=== PATIENT | female | born 1970 | race Caucasian/White ===

== ENCOUNTER → 2019-03-26 12:21 | Outpatient (CLI) | payer BC, SELFPAY ==
--- NOTE | ~2019-03-26 | MM_ITS ---
EXAMINATION: MM screening [facility] BI w saul HISTORY: Screening mammogram TECHNIQUE: Craniocaudal and mediolateral oblique 3-D tomosynthesis images were obtained and synthetic 2-D images were generated. CAD analysis was submitted and interpreted. COMPARISON: 03/12/2018, 02/27/2018, 07/27/2016 BREAST PARENCHYMAL COMPOSITION: There are scattered areas of fibroglandular density. FINDINGS: There is no evidence of suspicious mass, calcification, or architectural distortion to sugg est malignancy in either breast. There has been no suspicious interval change. IMPRESSION: 1. No mammographic evidence of malignancy. 2. Recommend routine screening mammography in one year. BI-RADS Category 1: Negative Reviewed, dictated and finalized at location A. 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
== END ==
PROVIDERS: PCP Family Medicine; Visit Provider Obstetrics & Gynecology
DX: Z12.31 Encounter for screening mammogram for malignant neoplasm of breast (principal)
CPT/HCPCS: 77063; 77067

== ENCOUNTER 2020-03-14 13:59 | Emergency (ER) | payer BC, SELFPAY ==
[2020-03-14] VITALS (9 sets, daily range): BP systolic 124–173; BP diastolic 84–98; PULSE 74–84; RESP 12–17; TEMP 36.7; O2SAT 98–100
--- NOTE | ~2020-03-14 | XR_ITS ---
EXAMINATION: XR chest 2V 03/14/2020 14:31 INDICATION: Chest pain PROCEDURE: 2 view chest COMPARISON: 02/07/2012 FINDINGS: The lungs are clear. The cardiomediastinal silhouette is within normal limits. There are no pleural effusions. There is no pneumothorax suspected. IMPRESSION: 1: NO ACUTE CARDIOPULMONARY DISEASE. Reviewed, dictated and finalized at location A. CH ARTIST
--- NOTE | 2020-03-14 14:05 | ECG_ITS ---
Measurements Intervals [place] Rate: 81 P: 46 ID: [id number] QRS: 9 QRSD: 92 T: 78 QT: 394 QTc: 460 Interpretive Statements SINUS RHYTHM POSSIBLE LEFT ATRIAL ENLARGEMENT LEFT VENTRICULAR HYPERTROPHY WITH ST-T CHANAGE BORDERLINE ECG Electronically Signed On 03-14-2020 14:19:27 [facility] by Reid Coreas D.O.
[2020-03-14 14:18] LABS: Basophils Absolute Auto 0.1 K/mm3 (0.0-0.1); Basophils Percent Auto 0.7 % (0.2-1.2); Eosinophils Absolute Auto 0.1 K/mm3 (0-0.3); Hematocrit 41.4 % (37.0-47.0); Immature Granulocyte Absolute 0.02 K/mm3 (0.00-0.031); Immature Granulocyte Percent A 0.2 % (0-0.5); Lymphocytes Absolute Auto 3.26 K/mm3 (0.9-3.2); Lymphocytes Percent Auto 36.6 % (18.3-44.2); Mean Corpuscular HGB Conc 33.8 g/dl (32-36); Mean Corpuscular Hemoglobin 29.9 pg (26-34); Mean Corpuscular Volume 88.5 fl (80-100); Mean Platelet Volume 8.9 fl (7.4-10.4); Monocytes Absolute Auto 0.6 K/mm3 (0.1-0.6); Monocytes Percent Auto 6.3 % (2.6-8.5); Neutrophils Absolute Auto 4.9 K/mm3 (1.3-6.7); Neutrophils Percent Auto 55.2 % (45.5-73.1); Platelet Count Result 369 k/mm3 (150-375); Red Blood Count 4.68 M/mm3 (4.2-5.4); Red Cell Distribution Width 12.5 % (11.5-14.5); White Blood Count 8.9 K/mm3 (4.5-10.0)
--- NOTE | 2020-03-14 14:18 | ED.GENADULT ---
HPI - General Adult General Chief complaint: Chest Pain Stated complaint: chest pain Time Seen by Provider: 03/14/20 14:14 Related Data Home Medications Medication Instructions Recorded Confirmed atorvastatin 20 mg tablet 20 mg PO DAILY 11/13/19 11/28/19 citalopram 10 mg tablet 5 mg PO DAILY 11/13/19 11/28/19 glipizide 5 mg tablet 5 mg PO DAILY 11/13/19 11/28/19 insulin glargine 100 unit/mL (3 36 unit SUBCUT QPM 11/13/19 11/28/19 mL) subcutaneous pen metformin 500 mg tablet 500 mg PO DAILY 11/13/19 11/28/19 omeprazole 40 mg capsule,delayed 40 mg PO DAILY 11/13/19 11/28/19 release gabapentin 03/14/20 Allergies Allergy/AdvReac Type Severity Reaction Status Date / Time No Known Allergies Allergy Verified 03/14/20 14:10 [facility] Past Medical History Medical History Anxiety Diabetes High blood cholesterol Surgical History Surgical History H/O: hysterectomy Hx of cholecystectomy Hx of tonsillectomy Family History Family History Grandparent Diabetes mellitus, Onset Age: 60 Family history of malignant neoplasm of breast in first degree relative, Onset Age: 89 Mother Patient's mother is in good health Social History Social History Smoking status: Former smoker Alcohol intake: unknown Substance use: never Gender identity (if verbalized by the patient): Female Course Vital Signs Vital signs: Vital Signs Temperature 36.7 C 03/14/20 14:05 Pulse Rate 84 03/14/20 14:05 Respiratory Rate 17 03/14/20 14:05 Blood Pressure 173/92 H 03/14/20 14:05 Pulse Oximetry 100 03/14/20 14:05 Temperature 36.7 C 03/14/20 14:05 Pulse Rate 82 03/14/20 14:17 Respiratory Rate 14 03/14/20 14:17 Blood Pressure 170/84 H 03/14/20 14:17 Pulse Oximetry 100 03/14/20 14:17 Medical Decision Making Vital Signs Vital Signs: Vital Signs Temperature 36.7 C 03/14/20 14:05 Pulse Rate 84 03/14/20 14:05 Respiratory Rate 17 03/14/20 14:05 Blood Pressure 173/92 H 03/14/20 14:05 Pulse Oximetry 100 03/14/20 14:05 Temperature 36.7 C 03/14/20 14:05 Pulse Rate 82 03/14/20 14:17 Respiratory Rate 14 03/14/20 14:17 Blood Pressure 170/84 H 03/14/20 14:17 Pulse Oximetry 100 03/14/20 14:17 Lab Data Result diagrams: 03/14/20 14:12 03/14/20 14:12 Labs: Lab Results 03/14/20 03/14/20 03/14/20 Range/Units 14:12 14:12 14:12 WBC Pending RBC Pending Hgb Pending Hct Pending MCV Pending MCH Pending MCHC Pending RDW Pending Plt Count Pending MPV Pending Immature Gran % (Auto) Pending Neut % (Auto) Pending Lymph % (Auto) Pending [place] % (Auto) Pending Eos % (Auto) Pending Baso % (Auto) Pending Lymph # (Auto) Pending [place] # (Auto) Pending Eos # (Auto) Pending Baso # (Auto) Pending Abs Immat Gran (auto) Pending Absolute Neuts (auto) Pending Absolute Nucleated RBC Pending Nucleated RBC % Pending PT Pending INR Pending APTT Pending Sodium Pending Potassium Pending Chloride Pending Carbon Dioxide Pending Anion Gap Pending BUN Pending Creatinine Pending Estim Creat Clear Calc Pending Estimated GFR Pending Glucose Pending Calcium Pending Troponin I Pending ECG Data EKG #1: Attestation: I personally reviewed and interpreted this ECG as follows: ECG completion date: 03/14/20 ECG completion time: 14:07 EKG Interpretation: normal rate, sinus rhythm, no ectopy and NL axis Discharge Plan Discharge Prescriptions: No Action estradiol 0.5 mg tablet 0.5 mg PO DAILY Qty: 90 RF
--- NOTE | 2020-03-14 14:23 | ED.GENADULT ---
HPI - General Adult General Chief complaint: Chest Pain Stated complaint: chest pain Time Seen by Provider: 03/14/20 14:14 Source: patient History of Present Illness HPI narrative: Patient is a 50 y/o female complaining of left side chest pain starting 7:00 AM this morning. She describes her pain as a pressure and pulled muscle. She states that her pain radiates to her pain and she rates it as 7/10. She states that taking a deep breath aggravates her pain. She has no SOB, cough or fever. Related Data Home Medications Medication Instructions Recorded Confirmed atorvastatin 20 mg tablet 20 mg PO DAILY 11/13/19 11/28/19 citalopram 10 mg tablet 5 mg PO DAILY 11/13/19 11/28/19 glipizide 5 mg tablet 5 mg PO DAILY 11/13/19 11/28/19 insulin glargine 100 unit/mL (3 36 unit SUBCUT QPM 11/13/19 11/28/19 mL) subcutaneous pen metformin 500 mg tablet 500 mg PO DAILY 11/13/19 11/28/19 omeprazole 40 mg capsule,delayed 40 mg PO DAILY 11/13/19 11/28/19 release gabapentin 03/14/20 Allergies Allergy/AdvReac Type Severity Reaction Status Date / Time No Known Allergies Allergy Verified 03/14/20 14:10 Review of Systems Constitutional: Constitutional: Denies chills, Denies fever(s), Denies headache(s) and Denies weakness Eyes: Eyes: Denies blurry vision ENT: Denies headache(s) and Denies neck pain Cardiovascular: Cardiovascular: Reports chest pain and Denies dyspnea Respiratory: Respiratory: Denies cough and Denies dyspnea Gastrointestinal: Gastrointestinal: Denies abdominal pain, Denies diarrhea, Denies nausea and Denies vomiting Genitourinary: Genitourinary: Denies hematuria and Denies dysuria Musculoskeletal: Musculoskeletal: Denies back pain and Denies neck pain Neurologic: Denies headache(s) and Denies weakness PMFSH Past Medical History Medical History Anxiety Diabetes High blood cholesterol Surgical History Surgical History H/O: hysterectomy Hx of cholecystectomy Hx of tonsillectomy Family History Family History Grandparent Diabetes mellitus, Onset Age: 60 Family history of malignant neoplasm of breast in first degree relative, Onset Age: 89 Mother Patient's mother is in good health Social History Social History Smoking status: Former smoker Alcohol intake: unknown Substance use: never Gender identity (if verbalized by the patient): Female Exam Const: General: no acute distress and well developed Orientation/consciousness: oriented to person, oriented to place, oriented to time and patient oriented x3 HENMT: Head: normocephalic Ears: external ears normal General nose exam: Normal external nose present Eyes: General: appearance normal, both eyes and all related structures Conjunctivae: conjunctivae normal Neck: Neck: normal visual inspection and full ROM Chest: Chest palpation & inspection: normal inspection of the chest and no tenderness Resp: Effort & Inspection: normal respiratory effort Auscultation: clear to auscultation bilaterally Cardio: Rate: regular rate Rhythm: regular rhythm GI: GI Palp: No abdominal tenderness and Yes Soft to palpation Skin: General skin exam: normal color and turgor normal Neuro: General: oriented to person, oriented to place, oriented to time and patient oriented x3 Cognition (Neuro): normal cognition Extrem: General: normal to inspection, full ROM and no pedal edema Psych: Appearance: grossly normal Mental Status: mental status grossly normal Affect: normal affect Course Reevaluation(s) Reevaluation #1: Rechecked patient. She states that she feels better with no significant chest pain at this time. Date: 03/14/20 Time: 18:10 Vital Signs Vital signs: Vital Signs Temperature 36.7 C 03/14/20 14:05 Pulse Rate
[2020-03-14 14:27] LABS: INR 0.9
[2020-03-14 14:28] LABS: Partial Thromboplastin Time 28.8 SECONDS (22.3-36.8)
[2020-03-14 14:29] LABS: Anion Gap 4 mmol/L (8-16); Blood Urea Nitrogen 16 mg/dL (7-17); Calcium 8.8 mg/dL (8.4-10.2); Carbon Dioxide 30 mmol/L (22-30); Chloride 102 mmol/L (98-107); Estimated CRCL calculation 125 ml/min; Estimated Glomerular Filt Rate > 60; Glucose 269 mg/dL (65-105); Potassium 4.1 mmol/L (3.4-5.0); Sodium 136 mmol/L (137-145)
[2020-03-14] MEDS: ASPIRIN 81 MG CHEWABLE TABLET 324 MG PO (14:40)
[2020-03-14 14:41] LABS: Troponin I < 0.012 ng/mL (0.000-0.034)
[2020-03-14] MEDS: KETOROLAC 30 MG/ML VIAL (*BKC) IV PUSH (14:44)
[2020-03-14 15:11] LABS: D Dimer 0.35 ug/mL (<0.48)
[2020-03-14 17:34] LABS: Troponin I < 0.012 ng/mL (0.000-0.034)
== END 2020-03-14 18:21 | disposition home or self-care (01) ==
PROVIDERS: Emergency Provider Emergency Medicine; PCP Family Medicine
DX: R07.89 Other chest pain (principal); I51.7 Cardiomegaly; R94.31 Abnormal electrocardiogram [ECG] [EKG]
CPT/HCPCS: 36415; 71046; 80048; 84484; 85025; 85380; 85610; 85730; 93005; 96374; 99284; A9270; J1885

== ENCOUNTER → 2020-04-30 17:13 | Outpatient (CLI) | payer BC, SELFPAY ==
--- NOTE | ~2020-04-30 | MM_ITS ---
EXAMINATION: MM screening [facility] BI w saul HISTORY: Screening mammogram TECHNIQUE: Craniocaudal and mediolateral oblique 3-D tomosynthesis images were obtained and synthetic 2-D images were generated. CAD analysis was submitted and interpreted. COMPARISON: 03/26/2019, 03/12/2018, 02/27/2018, 07/28/2016 BREAST PARENCHYMAL COMPOSITION: There are scattered areas of fibroglandular density. FINDINGS: There is no evidence of suspicious mass, calcification, or architectural distortion to sugg est malignancy in either breast. There has been no suspicious interval change. IMPRESSION: 1. No mammographic evidence of malignancy. 2. Recommend routine screening mammography in one year. BI-RADS Category 1: Negative Reviewed, dictated and finalized at location A.
== END ==
PROVIDERS: PCP Family Medicine; Visit Provider Obstetrics & Gynecology
DX: Z12.31 Encounter for screening mammogram for malignant neoplasm of breast (principal)
CPT/HCPCS: 77063; 77067

== ENCOUNTER → 2021-08-23 14:00 | Outpatient (CLI) | payer BC, SELFPAY ==
--- NOTE | ~2021-08-23 | MM_ITS ---
EXAMINATION: MM screening [facility] w saul HISTORY: Screening TECHNIQUE: Craniocaudal and mediolateral oblique 3-D tomosynthesis images were obtained and synthetic 2-D images were generated. CAD analysis was submitted and interpreted. COMPARISON: Comparison to multiple prior studies sequentially, with oldest reviewed study dated 07/27. BREAST PARENCHYMAL COMPOSITION: There are scattered areas of fibroglandular density. FINDINGS: There is no evidence of suspicious mass, calcification, or architectural distortion to sugg est malignancy in either breast. There has been no suspicious interval change. IMPRESSION: 1. No mammographic evidence of malignancy. 2. Recommend routine screening mammography in one year. BI-RADS Category 1: Negative Reviewed, dictated and finalized at location A.
== END ==
PROVIDERS: PCP Family Medicine; Visit Provider Obstetrics & Gynecology
DX: Z12.31 Encounter for screening mammogram for malignant neoplasm of breast (principal)
CPT/HCPCS: 77063; 77067

== ENCOUNTER 2022-01-15 10:05 | Emergency (ER) | payer BC, SELFPAY ==
--- NOTE | ~2022-01-15 | XR_ITS ---
EXAMINATION: XR foot RT min 3V DATE: 01/15/2022 10:25 INDICATION: Right foot pain. Injury. TECHNIQUE: 4 views of right foot were obtained. COMPARISON: None. FINDINGS: Bone alignment is normal. No fracture. There is mild osteoarthritis of first metatarsophala ngeal joint and talonavicular joint. There are enthesophytes at the posterior and plantar aspects of calcaneal tuberosity. IMPRESSION: 1. Mild polyarticular osteoarthritis. Reviewed, dictated and finalized at location A. 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
--- NOTE | ~2022-01-15 | XR_ITS ---
EXAMINATION: XR ankle RT min 3V DATE: 01/15/2022 10:25 INDICATION: Right ankle pain. Injury. TECHNIQUE: 4 views of right ankle were obtained. COMPARISON: None. FINDINGS: Bone alignment is normal. No fracture. There is mild osteoarthritis of talonavicular joint. There is an enthesophyte at plantar aspect of calcaneal tuberosity. Ankle soft tissue swelling is no nasir. IMPRESSION: 1. No fracture. Reviewed, dictated and finalized at location A. S REPRESENTATIVE [employer] IMPRESSION: 1. No fracture.
[2022-01-15 10:35] VITALS: BP 135/73; PULSE 93; RESP 16; TEMP 36.3; O2SAT 100
--- NOTE | 2022-01-15 11:23 | ED.LOWEXIN ---
HPI - Extremity Injury (Lower) General Chief Complaint: Extremity Injury, Lower Stated Complaint: R FOOT/ANKLE PAIN Time Seen by Provider: 01/15/22 10:44 History of Present Illness HPI Narrative: 51-year-old female history of anxiety, dyslipidemia and diabetes presents to the emergency room for evaluation of right foot and ankle pain since yesterday. 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 States has been wearing old shoes. States pain is in her midfoot and radiates into her Achilles tendon. Pain is worse with ambulation. Has noticed some swelling. Denies any known injury or trauma. Related Data Home Medications Medication Instructions Recorded Confirmed atorvastatin 20 mg tablet 20 mg PO DAILY 11/13/19 11/25/20 citalopram 10 mg tablet 5 mg PO DAILY 11/13/19 11/25/20 insulin glargine 100 unit/mL (3 36 unit subcut QPM 11/13/19 11/25/20 mL) subcutaneous pen (Basaglar KwikPen U-100 Insulin) metformin 500 mg tablet 500 mg PO DAILY 11/13/19 11/25/20 omeprazole 40 mg capsule,delayed 40 mg PO DAILY 11/13/19 11/25/20 release gabapentin 300 mg capsule 03/14/20 11/25/20 dulaglutide 0.75 mg/0.5 mL 0.75 mg subcut WEEKLY 11/17/20 11/25/20 subcutaneous pen injector (Trulicity) insulin aspart U-100 100 unit/mL 1 sliding scale dose subcut 11/17/20 11/25/20 (3 mL) subcutaneous pen [id number] Allergies Allergy/AdvReac Type Severity Reaction Status Date / Time No Known Allergies Allergy Verified 11/17/20 14:15 Review of Systems Review of Systems: CONSTITUTIONAL: Denies fever, chills, or sweats. EYES: Denies visual changes, redness, or discharge. ENT: Denies rhinorrhea, congestion, sore throat, or otalgia. CARDIOVASCULAR: Denies chest pain, palpitations, or edema. RESPIRATORY: Denies cough or dyspnea. GASTROINTESTINAL: Denies abdominal pain, nausea, vomiting, or diarrhea. GENITOURINARY: Denies dysuria or hematuria. SKIN: Denies rash or itching. MUSCULOSKELETAL: Reports right foot and ankle pain NEUROLOGIC: Denies headache, numbness, dizziness, or weakness. PSYCHIATRIC: Denies anxiety or depression. [facility] Past Medical History Medical History (Reviewed 01/15/22 @ : by Stephon Dexter APRN) Anxiety Diabetes High blood cholesterol Surgical History Surgical History (Reviewed 01/15/22 @ : by Stephon Dexter APRN) H/O: hysterectomy Hx of cholecystectomy Hx of tonsillectomy Family History Family History (Reviewed 01/15/22 @ : by Stephon Dexter APRN) Grandparent Diabetes mellitus, Onset Age: 60 Family history of malignant neoplasm of breast in first degree relative, Onset Age: 89 Mother Patient's mother is in good health Social History Social History (Reviewed 01/15/22 @ : by Stephon Dexter APRN) Smoking status: Former smoker Alcohol intake: unknown Substance use: never Gender identity (if verbalized by the patient): Female Exam Narrative: GENERAL: Well-appearing, well-nourished, no physical limitations, and in no acute distress. HEAD: Normocephalic, atraumatic. EYES: Conjunctivae normal, PERRLA and EOMI. CHEST: Clear to auscultation. No respiratory distress. No wheezes rales or rhonchi. HEART: Regular rate and rhythm. No murmur heard. Normal peripheral pulses. EXTREMITIES: RLE: Tenderness to the right medial midfoot extending to the base of the first metatarsal and Achilles tendon with mild soft tissue swelling. No joint laxity of the ankle joint. No bony abnormality. Neurovascular intact distally SKIN: Warm, dry, no rash. No noted wounds NEURO: No focal deficits. Alert and oriented x3. MAEW. CN's II-XI intact bilaterally, antalgic gait PSYCH: Cooperative. Normal mood and affect. Course Vital Signs Vital signs: Vital Signs Temperature 36.3 C L 01/15/22 10:35 Pulse Rate 93 01/15/22 10:35 Respiratory Rate 16 01/15/22 10:35 Blood Pressure 135/73 01/15/22 10:35 Pulse Oximetry
== END 2022-01-15 12:28 | disposition home or self-care (01) ==
PROVIDERS: Emergency Provider Nurse Practitioner Family; PCP Family Medicine
DX: M76.821 Posterior tibial tendinitis, right leg (principal); E11.9 Type 2 diabetes mellitus without complications; E78.00 Pure hypercholesterolemia, unspecified; F41.9 Anxiety disorder, unspecified; Z79.4 Long term (current) use of insulin; Z90.710 Acquired absence of both cervix and uterus; Z87.891 Personal history of nicotine dependence; M19.071 Primary osteoarthritis, right ankle and foot
CPT/HCPCS: 73610; 73630; 96372; 99283; J1100

== ENCOUNTER → 2023-01-04 13:25 | Outpatient (CLI) | payer BC, SELFPAY ==
--- NOTE | ~2023-01-04 | MM_ITS ---
EXAMINATION: MM screening [facility] BI w saul HISTORY: Screening mammogram TECHNIQUE: Craniocaudal and mediolateral oblique 3-D tomosynthesis images were obtained and synthetic 2-D images were generated. CAD analysis was submitted and interpreted. COMPARISON: 08/23/2021, 04/30/2020, 03/26/2019 bilateral screening mammogram examinations BREAST PARENCHYMAL COMPOSITION: There are scattered areas of fibroglandular density. FINDINGS: Biopsy marker on the left; history of prior benign left breast biopsy. There is no evidence of suspicious mass, calcification, or architectural distortion to suggest malignancy in either breas t. There has been no suspicious interval change. IMPRESSION: 1. No mammographic evidence of malignancy. 2. Recommend routine screening mammography in one year. BI-RADS Category 1: Negative Reviewed, dictated and finalized at location A. 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
== END ==
PROVIDERS: PCP Obstetrics & Gynecology; Visit Provider Obstetrics & Gynecology
DX: Z12.31 Encounter for screening mammogram for malignant neoplasm of breast (principal)
CPT/HCPCS: 77063; 77067

== ENCOUNTER 2024-01-11 10:04 | Outpatient (CLI) | payer BC, SELFPAY ==
--- NOTE | ~2024-01-11 | MM_ITS ---
EXAMINATION: MM screening [facility] w saul HISTORY: Screening TECHNIQUE: Craniocaudal and mediolateral oblique 3-D tomosynthesis images were obtained and synthetic 2-D images were generated. CAD analysis was submitted and interpreted. COMPARISON: Comparison to multiple prior studies sequentially, with oldest reviewed study dated 03/26. BREAST PARENCHYMAL COMPOSITION: Not dense: There are scattered areas of fibroglandular density. FINDINGS: There is no evidence of suspicious mass, calcification, or architectural distortion to sugg est malignancy in either breast. There has been no suspicious interval change. IMPRESSION: 1. No mammographic evidence of malignancy. 2. Recommend routine screening mammography in one year. BI-RADS Category 1: Negative Reviewed, dictated and finalized at location B. K OUT HAND
== END 2024-01-11 10:05 | disposition home or self-care (01) ==
PROVIDERS: PCP Family Medicine; Visit Provider Obstetrics & Gynecology
DX: Z12.31 Encounter for screening mammogram for malignant neoplasm of breast (principal)
CPT/HCPCS: 77063; 77067